=== PATIENT | female | born 1985 | race Caucasian/White ===

== ENCOUNTER 2017-01-27 05:52 | Inpatient (IN) | payer BC, MEDICAID ==
[~2017-01-27] VITALS: Ht 160 cm; Wt 61.4 kg
[~2017-01-27 05:52] MED LIST: IBUP-1222 PO; OXYC-302 PO; PNV1TABL11 PO
[2017-01-27] MEDS ORDERED: OXYTOCIN 30U/ 0.9% NaCL 500ML 500 ML IV SCH (06:01)
[2017-01-27] MEDS ORDERED: LACTATED RINGERS 1,000 ML IV SCH (06:01)
[2017-01-27 06:21] VITALS: BP 102/69
[2017-01-27] MEDS ORDERED: SODIUM CITRATE/CITRIC ACID 30 ML UDC PO ONE (06:30)
[2017-01-27] MEDS ORDERED: ONDANSETRON 2MG/ML, 2ML IVPush ONE (06:30)
[2017-01-27] MEDS ORDERED: CALCIUM CARBONATE 500 MG TAB.CHEW PO PRN ×2 (06:30→09:00)
[2017-01-27] MEDS ORDERED: LACTATED RINGERS 1,000 ML IVBOLUS ONE (06:30)
[2017-01-27] MEDS ORDERED: METOCLOPRAMIDE 5 MG/ML, 2ML IV ONE (06:30)
[2017-01-27] MEDS ORDERED: SODIUM CITRATE/CITRIC ACID 30 ML UDC ONE ×2 (06:42→07:34)
[2017-01-27] MEDS ORDERED: METOCLOPRAMIDE 5 MG/ML, 2ML ONE ×2 (06:43→07:34)
[2017-01-27] MEDS ORDERED: NEWBORN KIT ONE (07:14)
[2017-01-27] MEDS ORDERED: OXYTOCIN 30U/ 0.9% NaCL 500ML 500 ML ONE (07:15)
[2017-01-27] MEDS ORDERED: FENTANYL PF 100 MCG/2ML ONE ×2 (07:20→07:34)
[2017-01-27] MEDS ORDERED: MIDAZOLAM 1 MG/ML, 2ML IV PRN (07:30)
[2017-01-27] MEDS ORDERED: OXYcodone 5 MG/5 ML ORAL.SOL UDC PO PRN (07:30)
[2017-01-27] MEDS ORDERED: LABETALOL 5MG/ML, 20ML IV PRN (07:30)
[2017-01-27] MEDS ORDERED: hydrALAzine 20 MG/ML, 1ML IV PRN (07:30)
[2017-01-27] MEDS ORDERED: HYDROcodone/APAP 7.5-325MG/15ML UDC PO PRN (07:30)
[2017-01-27] MEDS ORDERED: FENTANYL PF 100 MCG/2ML IV PRN (07:30)
[2017-01-27] MEDS ORDERED: PROMETHAZINE 25 MG/ML, 1ML IV PRN (07:30)
[2017-01-27] MEDS ORDERED: ONDANSETRON 2MG/ML, 2ML IVPush PRN (07:30)
[2017-01-27] MEDS ORDERED: MEPERIDINE/PF 25MG/0.5ML IVPush PRN (07:30)
[2017-01-27] MEDS ORDERED: ALBUTEROL SULFATE 2.5 MG/3 ML NPPB PRN (07:30)
[2017-01-27] MEDS ORDERED: OXYTOCIN 10 UNITS/ML, 1ML ONE (07:34)
[2017-01-27] MEDS ORDERED: CEFAZOLIN 1,000 MG ONE (07:34)
[2017-01-27] MEDS ORDERED: KETOROLAC 30 MG/1 ML ONE (07:34)
[2017-01-27] MEDS ORDERED: ONDANSETRON 2MG/ML, 2ML ONE (07:34)
[2017-01-27] MEDS ORDERED: DEXAMETHASONE 4 MG/ML, 1ML ONE (07:34)
[2017-01-27] MEDS: OXYTOCIN 30U/ 0.9% NaCL 500ML 500 ML IV SCH ×2 (08:52→18:52)
[2017-01-27] MEDS: LACTATED RINGERS 1,000 ML IV SCH ×4 (08:52→18:52)
[2017-01-27] MEDS ORDERED: ONDANSETRON 2MG/ML, 2ML IV PRN (09:00)
[2017-01-27] MEDS ORDERED: morphine SULFATE 10 MG/ML, 1ML IVPush PRN ×2 (09:00)
[2017-01-27] MEDS ORDERED: DIPH,PERTUSS(ACELL),TET VAC/PF NC IM-VACC PRN (09:00)
[2017-01-27] MEDS ORDERED: ACETAMINOPHEN 325 MG TABLET PO PRN (09:00)
[2017-01-27] MEDS ORDERED: MISOPROSTOL 200 MCG TABLET PR PRN (09:00)
[2017-01-27] MEDS ORDERED: SIMETHICONE 80 MG CHEW TAB PO PRN (09:00)
[2017-01-27] MEDS ORDERED: METOCLOPRAMIDE 5 MG/ML, 2ML IV PRN (09:00)
[2017-01-27] MEDS: PRENATAL VIT/IRON/FA 1 EACH TABLET PO SCH (09:00)
[2017-01-27] MEDS ORDERED: PLEASE ENTER ALLERGIES MC SCH ×2 (10:00)
[2017-01-27 11:30] VITALS: BP 110/75
[2017-01-27 12:23] VITALS: BP 107/75
[2017-01-27] MEDS: KETOROLAC 30 MG/1 ML IV SCH ×2 (14:42→20:24)
[2017-01-27] MEDS: OXYcodone/APAP 5/325MG TABLET PO PRN ×3 (14:51→23:00)
[2017-01-27 16:13] VITALS: BP 108/72
[2017-01-27 20:00] VITALS: BP 102/66
[2017-01-28 00:30] VITALS: BP 104/69
[2017-01-28] MEDS: LACTATED RINGERS 1,000 ML IV SCH ×5 (00:52→16:52)
[2017-01-28] MEDS: KETOROLAC 30 MG/1 ML IV SCH ×4 (02:45→20:34)
[2017-01-28] MEDS: OXYcodone/APAP 5/325MG TABLET PO PRN ×4 (04:05→21:45)
[2017-01-28 04:15] VITALS: BP 97/63
[2017-01-28] MEDS: OXYTOCIN 30U/ 0.9% NaCL 500ML 500 ML IV SCH ×2 (04:52→14:52)
[2017-01-28 07:27] VITALS: BP 95/64
[2017-01-28] MEDS: DOCUSATE 100 MG CAPSULE PO PRN ×2 (08:30→20:34)
[2017-01-28] MEDS: PRENATAL VIT/IRON/FA 1 EACH TABLET PO SCH (08:30)
[2017-01-28] MEDS ORDERED: OXYcodone/APAP 10/325MG TABLET PO PRN (10:00)
[2017-01-28 13:15] VITALS: BP 105/66
[2017-01-28 20:35] VITALS: BP 103/68
[2017-01-29] MEDS: LACTATED RINGERS 1,000 ML IV SCH ×3 (00:52→08:52)
[2017-01-29] MEDS: OXYTOCIN 30U/ 0.9% NaCL 500ML 500 ML IV SCH (00:52)
[2017-01-29] MEDS: KETOROLAC 30 MG/1 ML IV SCH ×2 (02:39→08:30)
[2017-01-29] MEDS: OXYcodone/APAP 5/325MG TABLET PO PRN ×4 (02:39→20:23)
[2017-01-29] MEDS ORDERED: IBUP-1222 PO (03:39)
[2017-01-29] MEDS ORDERED: OXYC-302 PO (03:40)
[2017-01-29 07:20] VITALS: BP 100/64
[2017-01-29] MEDS: PRENATAL VIT/IRON/FA 1 EACH TABLET PO SCH (08:18)
[2017-01-29] MEDS: DOCUSATE 100 MG CAPSULE PO PRN (08:18)
[2017-01-29] MEDS: IBUPROFEN 600 MG TABLET PO PRN ×3 (08:18→20:23)
[2017-01-29 20:10] VITALS: BP 113/76
[2017-01-30] MEDS: OXYcodone/APAP 5/325MG TABLET PO PRN ×3 (02:22→10:15)
[2017-01-30] MEDS: IBUPROFEN 600 MG TABLET PO PRN ×2 (02:22→08:22)
[2017-01-30 08:20] VITALS: BP 105/70
[2017-01-30] MEDS: PRENATAL VIT/IRON/FA 1 EACH TABLET PO SCH (08:22)
[2017-01-30] MEDS: DOCUSATE 100 MG CAPSULE PO PRN (08:22)
== END 2017-01-30 12:39 | disposition home or self-care (01) | DRG 766 ==
LOC: LDIP 05:52 → 2NW 11:11
PROVIDERS: ADMIT Obstetrics & Gynecology; ATTEND Obstetrics & Gynecology
PROC: 10D00Z1 Extraction of Products of Conception, Low, Open Approach (ICD-10-PCS; principal; 2017-01-27)
DX: O34.211 Maternal care for low transverse scar from previous cesarean delivery (principal); O99.824 Streptococcus B carrier state complicating childbirth; N73.6 Female pelvic peritoneal adhesions (postinfective); Z3A.39 39 weeks gestation of pregnancy; Z37.0 Single live birth; Z82.49 Family history of ischemic heart disease and other diseases of the circulatory system; Z83.3 Family history of diabetes mellitus; Z88.0 Allergy status to penicillin; Z88.1 Allergy status to other antibiotic agents
CPT/HCPCS: 36415; 85025; 86850; 86900; J0690; J1100; J1885; J2405; J3010; C1765; J2590; J2765; J7120